=== PATIENT | male | born 1970 | race Caucasian/White ===

== ENCOUNTER → 2024-06-30 | Outpatient (CLI) | payer MEDICAID, SELFPAY ==
--- NOTE | 2024-06-30 16:30 | XR_ITS ---
Examination: CT chest, without intravenous contrast. Sagittal and coronal 2-D reconstructions. Exam date and time: June 30, 2024 at 1634 hours INDICATIONS: Diagnosis pulmonary mass one year ago CTDI:vol (mGy) 12 DLP: (mGycm) 426 Technique: Multiple 3.0 mm axial sections of the chest to been obtained. Bone and lung density settings are obtained. Sagittal and coronal 2-D reconstructions have been obtained. Low dose protocols were performed. One or more of the following dose reduction techniques were used; automated exposure control, adjustment of the mA and/or KV according to patient size, use of iterative reconstruction technique. Findings: Mild enlargement cardiac contour was small pericardial effusion No mediastinal lymphadenopathy Pulmonary mass pleural based in the right lower lobe containing central calcification, 27 mm Minor right hilar calcifications No lobar pneumonia or pulmonary edema No visualized liver or splenic lesion Large solid right renal upper pole tumor mass containing calcification, at least 7.7 cm IMPRESSION: Pleural-based pulmonary mass right lower lobe containing central calcification, 27 mm, likely granuloma but clinical correlation and follow-up recommended as clinically warranted Large solid right renal upper pole tumor mass at least 7.7 cm, recommend CT scan abdomen and pelvis post intravenous contrast follow-up
== END | disposition home or self-care (01) ==
LOC: CCTX 16:11
PROVIDERS: Referring Provider Internal Medicine; Visit Provider Internal Medicine
DX: R91.8 Other nonspecific abnormal finding of lung field (principal)
CPT/HCPCS: 71250

== ENCOUNTER 2024-08-04 12:56 | Inpatient (IN) | payer MEDICAID, SELFPAY ==
[2024-08-04] VITALS (10 sets, daily range): BP systolic 122–171; BP diastolic 85–121; PULSE 85–97; RESP 17–26; TEMP 36.5–36.7; O2SAT 88–94
--- NOTE | 2024-08-04 13:14 | XR_ITS ---
Examination: PA lateral chest 2 views TECHNIQUE: Upright PA lateral chest 2 views Exam date and time: August 04, 2024 1329 hours INDICATIONS: Shortness of breath today. FINDINGS: Mild CHF Moderate enlargement cardiac contour with prominent vascular congestion and bilateral septal pulmonary edema Pulmonary mass in the right upper lobe, 29 mm, which contains calcium, likely granuloma IMPRESSION: Mild CHF
--- NOTE | 2024-08-04 13:14 | EKG_ITS ---
[facility] Test Date: 2024-08-04 Pat Name: MARIBELL PORTILLO Department: Room: - Gender: Male Cardiology Associate: : 1970 Requested By: Brooks Mcgee (PEPPER) Order Number: [id number] Reading MD: Brooks Mcgee (STRUCTURAL DRAFTER) Measurements Intervals [place] Rate: 95 P: -80 VT: 202 QRS: 109 QRSD: 110 T: 22 QT: 365 QTc: 460 Interpretive Statements ECTOPIC ATRIAL RHYTHM RIGHT AXIS DEVIATION [QRS AXIS > 100] LOW QRS VOLTAGE IN PRECORDIAL LEADS [QRS DEFLECTION < 1.0 mV IN CHEST LEADS] INCOMPLETE RIGHT BUNDLE BRANCH BLOCK [90+ ms QRS DURATION, TERMINAL R IN V1/V2, 40+ ms S IN I/aVL/V4/V5/V6] MODERATE ST DEPRESSION [0.05+ mV ST DEPRESSION] No previous ECG available for comparison /[id number]/[email or web address]/[id number].pdf
--- NOTE | 2024-08-04 13:14 | PD.EDRME ---
Rapid Medical Screening Exam RME Arrival date/time: 08/04/24 12:56 54-year-old male presents to the Emergency Department today for complaints of shortness of breath patient reports recently diagnosed with lung mass as well as abdominal mass Chief Complaint: Abdominal Pain Vital signs: Vital Signs Temperature 97.8 F 08/04/24 13:07 Pulse Rate 96 08/04/24 13:07 Respiratory Rate 20 08/04/24 13:07 Blood Pressure 143/98 H 08/04/24 13:07 Pulse Oximetry (%) 88 L 08/04/24 13:07 Oxygen Delivery Method Room Air 08/04/24 13:07
[2024-08-04 13:45] LABS: Basophils # (Auto) 0.1 Thou/mm3 (0.0-0.2); Basophils % (Auto) 1 % (0-2.5); Eosinophils # (Auto) 0.1 Thou/mm3 (0.0-0.5); Eosinophils % (Auto) 1 % (0-10); Hematocrit 45.2 % (41.0-53.0); Hemoglobin 15.6 g/dL (13.5-16.0); Immature Granulocytes % (Auto) 0 % (0-0); Immature Granulocytes Auto 0.02 Thou/mm3 (0.00-0.00); Lymphocytes % (Auto) 15 % (10-50); Mean Corpuscular HGB Conc 34.5 g/dl (31.0-37.0); Mean Corpuscular Hemoglobin 31.6 pg (25.0-35.0); Mean Corpuscular Volume 92 fL (80-100); Monocytes # (Auto) 0.9 Thou/mm3 (0.0-0.8); Monocytes % (Auto) 13 % (0-12); Neutrophils # (Auto) 4.8 Thou/mm3 (1.8-7.7); Neutrophils % (Auto) 71 % (37-80); Nucleated Red Blood Cell % 0 /100 WBC (0); Platelet Count 157 Thou/mm3 (140-440); RDW Standard Deviation 50.1 fL (35.1-43.9); Red Blood Count 4.93 Miln/mm3 (4.50-5.90); White Blood Count 6.8 Thou/mm3 (3.8-10.6)
[2024-08-04 14:15] LABS: B-Type Natriuretic Peptide 260 pg/mL (0-100)
[2024-08-04 14:16] LABS: Alanine Aminotransferase 25 U/L (10-49); Albumin, Serum 4.3 gm/dL (3.5-5.0); Albumin/Globulin Ratio 1.5 (1.2-2.2); Alkaline Phosphatase 347 U/L (46-116); Anion Gap 9 (7-16); Aspartate Amino Transferase 35 U/L (0-34); BUN/Creatinine Ratio 12 Ratio (12-20); Bilirubin,Total 2.6 mg/dL (0.3-1.2); Blood Urea Nitrogen 14 mg/dL (9-23); Calcium 9.6 mg/dL (8.3-10.6); Calcium (Corrected) 9.6 mg/dL (8.5-10.1); Carbon Dioxide 24.2 mMol/L (20.0-31.0); Chloride 109 mMol/L (98-107); Creatinine (Component) 1.2 mg/dL (0.6-1.3); Globulin 2.8 gm/dL (2.3-3.5); Glucose 117 mg/dL (74-106); LDH (Lactate Dehydrogenase) 273 U/L (120-246); Lipase 31 U/L (12-53); Magnesium 1.9 mg/dL (1.6-2.6); Osmolality,Calculated 284 (275-295); Potassium 3.6 mMol/L (3.4-5.1); Sodium 142 mMol/L (136-145); Total Protein 7.1 gm/dL (5.7-8.2); Troponin I < 0.020 ng/mL (0.0-0.045); eGFR > 60 See Note
[2024-08-04 14:20] LABS: INR 1.2 (0.9-1.3); Partial Thromboplastin Time 28.2 Seconds (22.0-36.0)
--- NOTE | 2024-08-04 14:35 | XR_ITS ---
Examination: Abdomen sonogram, Limited Date and time of exam: August 04, 2024 1554 hours INDICATIONS: Cirrhosis, increasing distention this week Technique: Real-time green scale transabdominal sonographic images of the upper abdomen obtained. Findings: Minimal ascitic fluid IMPRESSION: Minimal ascitic fluid
--- NOTE | 2024-08-04 14:45 | PD.EDADULT ---
ED General RME/HPI General Chief complaint: Abdominal Pain Stated complaint: NEED BELLY DRAINED ; [facility] SENT Time Seen by Provider: 08/04/24 14:19 Arrival date/time: 08/04/24 12:56 CC: Shortness of breath, swollen ankles, distended abdomen, swollen scrotum HPI ongoing for the last 2 to 3 weeks however the patient is noted the shortness of breath started approximately 4 to 5 months ago now patient states he cannot walk 10 yards without becoming short of breath. The patient admits to smoking 3 to 4 cigarettes a day . Patient denies fever chills. Patient states he has had intermittent chest pressure in the past months but none right now. Patient is awake alert oriented oxygen saturations on room air were 86% currently the patient is on 4 L nasal cannula satting 92% he is mildly tachypneic with borderline tachycardia. Recent discovery by PCP of a mass in his lung , and a mass on his kidney . RME / HPI RME / HPI narrative: 08/04/24 12:56 54-year-old male presents to the Emergency Department today for complaints of shortness of breath patient reports recently diagnosed with lung mass as well as abdominal mass Related Data Allergies Allergy/AdvReac Type Severity Reaction Status Date / Time No Known Allergies Allergy Verified 08/04/24 12:58 Review of Systems Review of Systems Narrative Review of Systems: GEN: No fever, no chills, no weight loss EYES: No discharge, no visual changes, no pain HEENT: No ear pain, no congestion, no sore throat PULM: + shortness of breath, no cough, no congestion CV: No chest pain, no dyspnea on exertion, no palpitations GI: No nausea, no vomiting, no diarrhea, no pain, no constipation : No frequency, no urgency, no dysuria MUSC/SKEL: No joint pain, no back pain SKIN: No rash PSYCH: No hallucinations, no depression HEME/LYMPH: No easy bleeding or bruising tendencies NEURO: No weakness, no headache Past Medical History Social History SMOKING STATUS: Light (< 1 pack/day) ED Exam Narrative Physical exam: [General: In mild discomfort but not in any acute distress Head normocephalic HEENT: Eyes pupils are PERRLA EOMs are intact mouth pink dry membranes uvula is midline swallow is symmetrical. All the subsystems of ATTR within acceptable limits Neck is supple nontender Chest equal chest rise nontender to palpation Respiratory: Clear to auscultation no wheezes crackles or rubs CV: Rate rhythm is regular no murmurs rubs or clicks Abdomen is distended, tympanic, nontender, distant positive bowel sounds all 4 quadrants Back: No CVA tenderness no spinous process tenderness from cervical spine thoracic and lumbar spine Skin: No rash to the left inguinal crease otherwise skin is intact no petechiae rash induration ulceration or crepitus, nicotine stain to the right index finger. : Edematous foreskin, edematous scrotum, nonerythematous not warm to touch, no open lesions induration or ulceration. Extremities: Moving all extremity against resistance cap refill less than 2 seconds neurosensory intact. Nonpitting edema in both lower extremities including dorsum of the feet. Neuro: Awake alert oriented x3 Glascow coma 15 no focal deficits] Course Course Course Narrative: Patient is in fluid overload, will diurese him, however it is significant enough to require oxygen. After paracentesis if possible patient will be admitted for congestive heart failure and hypoxemia at which time the patient get further workup on the masses in the lung and abdomen. Review of all of patient's laboratory findings as the patient, remains hypoxemic there is not enough fluid removal of the abdomen at this time I think this is contributing to congestive heart failure. The masses are incidental findings, there is a concern over transaminitis and T. bili elevation ordered the ultrasound of the gallbladder the patient is reportedly not a drinker at this time. Patient's case discussed with Dr. Amparo Iverson who agrees to accept the patient for admission Quality Measures none Orders Category Date Time Status EKG (ED ONLY) *Do not use* NOW Care 08/04/24 13:14 Completed Saline [Insert IV] NOW Care 08/04/24 14:30 Active EKG (ED Only) Stat Exams 08/04/24 13:14 Draft US abdomen limited Stat Exams 08/04/24 14:35 Completed US gall bladder Stat Exams 08/04/24 16:03 Ordered XR chest 2V Stat Exams 08/04/24 13:14 Completed B-Type Natriuretic Peptide Stat Lab 08/04/24 13:38 Completed CBC Stat Lab 08/04/24 13:38 Completed Comprehensive Metabolic Panel Stat Lab 08/04/24 13:38 Completed Drug Screen,Urine Stat Lab 08/04/24 16:00 Received LDH (Lactate Dehydrogenase) Stat Lab 08/04/24 13:38 Completed Lipase Stat Lab 08/04/24 13:38 Completed Magnesium Stat Lab 08/04/24 13:38 Completed Partial Thromboplastin Time Stat Lab 08/04/24 13:38 Completed Prothrombin Time with INR Stat Lab 08/04/24 13:38 Completed Troponin I Stat Lab 08/04/24 13:38 Completed Urinalysis Stat Lab 08/04/24 16:00 Received Furosemide Inj [Lasix Inj] Med 08/04/24 14:30 Discontinued 80 mg IVP X1 ONE POTASSIUM CHL 10 mEq IVPB [Kcl Ivpb] Med 08/04/24 14:32 Active 10 meq in 100 ml IV Q1H Vital Signs Vital signs: Vital Signs Temperature 97.8 F 08/04/24 13:07 Pulse Rate 96 08/04/24 13:07 Respiratory Rate 20 08/04/24 13:07 Blood Pressure 143/98 H 08/04/24 13:07 Pulse Oximetry (%) 88 L 08/04/24 13:07 Oxygen Delivery Method Room Air 08/04/24 13:07 Discharge Plan Plan Patient Disposition: Xfer Residential Acute Patient condition on transfer: Stable Prescriptions/Referrals Referrals: [facility] PA-C [Primary Care Provider] - In 1 week Problem List Clinical Impression: Shortness of breath, Congestive heart failure Patient/Caregiver Discharge Instructions Print Language: Vietnamese Stand Alone Forms: Lian Award Info., Patient Portal Info Letter PA/GONZALO Supervising Physician PA/SEWER LINE REPAIRER Supervising Physician: Abraham Brown ENP MDM Patient Acuity High Acuity (complete MDM) Clinical Information Provided by: patient Medical Records reviewed [facility] Meds/Rx considered, not ordered None Labs/Rad/Tests considered, not ordered None Chronic Illness/Social Conditions Explain: Smoker, hypertension EKG EKG Interpretation(s): EKG performed at 1317 shows a ventricular rate of 95 IN interval 202 QRS of 110, QTc of 418. Right axis deviation. Incomplete right bundle branch block no old EKG for comparison. Labs Lab(s) Interpretation(s): CBC shows no acute leukocytosis anemia thrombocytopenia Coags show PT of 13.0 INR 1.2 PTT of 28.2 CMP shows chloride of 109 no other electrolyte imbalances glucose at 117. T. bili at 2.6 AST 35 ALT 25 alk phos of 347 LDH of 273 BNP of 260. Troponin within acceptable limits Lipase is 31 Imaging Imaging Interpretation(s): Chest x-ray as interpreted by radiology and reviewed by me shows mild congestive heart failure. Medication Administration(s) Medication Administration History Potassium Chloride (Kcl Ivpb) 10 meq in 100 mls @ 100 mls/hr IV Q1H LALY Stop: 08/04/24 18:31 Last Admin: 08/04/24 15:32 Dose: 100 mls/hr Documented By: DO Discontinued Medications Furosemide (Furosemide Inj 10 Mg/Ml 4ml Vial) 80 mg IVP X1 ONE Stop: 08/04/24 14:31 Last Admin: 08/04/24 15:27 Dose: 80 mg Documented By:
[2024-08-04] MEDS: FUROSEMIDE INJ 10 MG/ML 4ML VIAL 80 MG IVP (15:27)
[2024-08-04] MEDS: POTASSIUM CHL 10 mEq IVPB 10 MEQ/100 ML BAG 100 MEQ IV (15:32)
--- NOTE | 2024-08-04 16:03 | XR_ITS ---
Examination: Abdomen sonogram, Limited Date and time of exam: August 04, 2024 17.5 hours Indications: Elevated liver transaminases size and left are examination today, abdominal pain beginning 2 weeks Technique: Real-time green scale transabdominal sonographic images of the upper abdomen obtained. Findings: Negative for gallstones Gallbladder wall is thickened up to 0.66 cm no edema Common bile duct 0.3 cm Pancreatic head 2.3 cm Liver 16.9 cm minimal free fluid in the abdomen, lobular appearance of the liver Normal hepatopedal portal venous oh Patent IVC Apparent right renal mass 6.9 x 5.8 x 6.3 cm Impression: Cirrhosis versus primary hepatocellular disease Mild ascites Gallbladder wall thickening up to 0.6 6:00 PM which may relate to be free fluid in the abdomen Recommend CT scan abdomen pelvis post intravenous contrast follow-up to exclude solid right renal mass
[2024-08-04 16:11] LABS: Collection Type, Urine Clean Catch; Squamous Epithelial Cell,Urine 0 /hpf (0-5)
[2024-08-04 16:17] LABS: Bilirubin,Urine Negative (Negative); Blood,Urine Negative (Negative); Clarity,Urine Clear (Clear/Hazy); Color,Urine Lt-Yellow (Lt Yel-Yel); Glucose, Urine Negative (Negative); Ketones,Urine Negative (Negative); Leukocyte Esterase,Urine Negative (Negative); Nitrite,Urine Negative (Negative); PH,Urine 6.5 (5.0-7.0); Protein,Urine Negative (Neg - Trace); RBC,Urine 3 /hpf (0-3); Specific Gravity,Urine 1.012 (1.001-1.035); WBC,Urine 2 /hpf (0-5)
[2024-08-04 16:25] LABS: Amphetamine/Methamp Scrn,U Positive (Negative); Barbiturate Screen,Urine Negative (Negative); Benzodiazepines Screen,Urine Negative (Negative); Benzoylecgonine Screen, Ur Negative (Negative); Fentanyl Screen,Urine Negative (Negative); Opiate Screen,Urine Negative (Negative); THC Screen,Urine Positive (Negative)
[2024-08-04 16:40] LABS: Base Excess -1 (-3-3); HCO3 21 mEq/L (20-26); Inspired O2, VO2 Liters 6 L/min; Inspired Oxygen, FIO2 94 %; O2 Saturation 92 % (91-98); PCO2 29 mmHg (32.0-48.0); PO2 61 mmHg (83-108); pH, Arterial 7.48 (7.35-7.45)
[2024-08-04 16:48] LABS: Allen Test Not Performed; Puncture Site Right Radial
--- NOTE | 2024-08-04 16:51 | XR_ITS ---
Examination: Venous duplex lower extremity sonogram, bilateral. Date and time of exam: August 04, 2024 1704 hours Indications: Bilateral leg swelling beginning 2 weeks ago Technique: Multiple sonographic images of the deep venous system have been obtained. B-mode/2-D grayscale imaging of vascular structures and Doppler spectral analysis (waveforms) and color performed Both legs are examined. Findings: Deep venous systems do not demonstrate abnormal echogenicity. All visualized deep veins exhibit compressibility. All visualized deep veins exhibit augmentation. Impression: Negative for deep vein thrombosis
--- NOTE | 2024-08-04 17:00 | ESHP_ITS ---
<Statement entered by Bharat Tiwari MD - 08/10/24 13:38> I reviewed above note and agree with findings and plans. I have also personally examined the patient with medicine team and went over assessment and plan with medical team including medical intern and resident physician. <Statement entered by Shahid Manuel MD - 08/07/24 15:05> Senior Resident Attestation: I supervised/discussed management plan with medical intern physician Dr. Altman, and was involved in the care of this patient. I personally saw and examined the patient and discussed the assessment and plan with the entire medicine team, including my attending. I agree with the assessment and plan as documented. Patient is a 54 years old male with PMH of CHF, hypertension, tobacco use disorder, methamphetamine abuse, recently diagnosed with right lung mass presented to the ED due to worsening SOB and was admitted for CHF exacerbation management and was started on IV diuretics. Patient's care was discussed with attending physician, Dr. Tiwari. Shahid Manuel MD PGY-2. Documentation for date of: 08/04/24 HPI History of Present Illness Chief complaint: Shortness of breath History of present illness: A 54-year-old male with significant past medical history of congestive heart failure, hypertension, chronic smoker, methamphetamine abuse, recently diagnosed with right lung mass presented to the hospital with worsening shortness of breath since 2 weeks. Patient was apparently normal 2 weeks ago, then developed shortness of breath which is gradual in onset, progressive in nature. Stated that he is having cough from a long time and was sent from the last 2 weeks. Denies fever, nausea, vomitings. Also complaining of mild abdominal distention associated with decreased appetite. Denies recent weight loss. As patient's shortness of breath is worsening, patient went to [facility] on the outpatient basis following which patient came to the hospital. Patient is having lower extremity edema since many months from now and is using Lasix for that ED course: - Vitals at the time of admission are significant for blood pressure 143/98 mmHg, SpO2 88% with room air - Labs are significant for total bilirubin 2.6, AST 35, ALT 25, ALP 347, LDH 273, BNP 260 - Urine toxicology tested positive for methamphetamine, marijuana - Chest x-ray showed 2.9 cm mass in the right lung which is calcified - Abdominal ultrasound showed minimal ascitic fluid -Patient is admitted to the hospital for acute hypoxic respiratory failure secondary to CHF exacerbation Past medical history: Hypertension, congestive heart failure Past surgical history: Not significant Social history: Smokes 40 cigarettes/day currently and smoking since 40 years. Stopped alcohol 15 years ago. Admitted marijuana and methamphetamine abuse. Denies any other drugs. Lives at home with his family Allergies: NKDA Review of Systems Review of Systems Systems Reviewed: All systems reviewed, normal except as documented Past Medical History Social History SMOKING STATUS: Light (< 1 pack/day) Exam Vital Signs Temp Pulse Resp BP Pulse Ox O2 Del Method O2 Flow Rate 97.9 F 97 20 133/98 H 94 L Nasal Cannula 6 08/04/24 14:23 08/04/24 16:52 08/04/24 16:52 08/04/24 15:27 08/04/24 16:52 08/04/24 14:08/04/24 16:52 Narrative Exam General: Awake. On oxygen through nasal cannula HEENT: Normocephalic, atraumatic, mucous membranes moist. Heart: Regular rate and rhythm, no murmurs. Lungs: Clear to auscultation with no wheezing or crackles. Abdomen: Soft, nondistended, nontender, positive bowel sounds. ?No guarding or rebound tenderness. Neurologic: Alert and oriented x3, no gross neurological deficit, and patient able to move all 4 extremities. Extremities: Bilateral 4+ pitting pedal edema extending up to lower abdomen. Noticed scrotal edema. Bilateral erythema is noted in the lower extremities Skin: No rash or ecchymoses. Results: Labs 08/04/24 13:38 08/04/24 13:38 Labs: Short CBC 08/04/24 Range/Units 13:38 WBC 6.8 (3.8-10.6) Thou/mm3 Hgb 15.6 (13.5-16.0) g/dL Hct 45.2 (41.0-53.0) % Plt Count 157 (140-440) Thou/mm3 BMP 08/04/24 13:38 Sodium 142 Potassium 3.6 Chloride 109 H Carbon Dioxide 24.2 BUN 14 Creatinine 1.2 Glucose 117 H Calcium 9.6 Cardiac Enzymes 08/04/24 Range/Units 13:38 Troponin I < 0.020 (0.0-0.045) ng/mL Liver Function 08/04/24 Range/Units 13:38 Total Bilirubin 2.6 H (0.3-1.2) mg/dL AST 35 H (0-34) U/L ALT 25 (10-49) U/L Alkaline Phosphatase 347 H (46-116) U/L Albumin 4.3 (3.5-5.0) gm/dL Urine 08/04/24 Range/Units 16:00 Urine Color Lt-Yellow (Lt Yel-Yel) Urine Clarity Clear (Clear/Hazy) Urine pH 6.5 (5.0-7.0) Ur Specific [place] 1.012 (1.001-1.035) Urine Protein Negative (Neg - Trace) Urine Glucose (UA) Negative (Negative) ABG Interpretation ABG results: 08/04/24 16:37 ABG pH 7.48 H ABG pCO2 29 L ABG pO2 61 L ABG HCO3 21 ABG O2 Saturation 92 ABG Base Excess -1 Quality Measures Quality Measures none Medications Home Medications and Allergies Allergies Allergy/AdvReac Type Severity Reaction Status Date / Time No Known Allergies Allergy Verified 08/04/24 12:58 Visit Medications Acetaminophen (Acetaminophen 325 Mg Tablet) 650 mg PO Q6H PRN PRN Reason: Fever >100.3 Stop: 09/03/24 16:27 Albuterol/Ipratropium (Albuterol/Ipratropium (Duoneb) Rt Gertrude 3 Ml Nebu) 3 ml INH Q6HRRT LALY Stop: 09/03/24 18:59 Bumetanide (Bumetanide Inj 0.25 Mg/Ml Vial 4 Ml) 1 mg IVP BID LALY Stop: 09/03/24 20:59 Carvedilol (Carvedilol 3.125 Mg Tablet) 6.25 mg PO BIDWM LALY Stop: 09/03/24 17:29 Docusate Sodium (Docusate Sod 100 Mg Capsule) 100 mg PO QDAY PRN; Protocol PRN Reason: CONSTIPATION Stop: 09/03/24 16:27 Enoxaparin Sodium (Enoxaparin Sod Inj 40 Mg/0.4 Ml Syringe) 40 mg SC QDAY LALY Stop: 08/19/24 08:59 Potassium Chloride (Kcl Ivpb) 10 meq in 100 mls @ 100 mls/hr IV Q1H LALY Stop: 08/04/24 18:31 Last Admin: 08/04/24 15:32 Dose: 100 mls/hr Ondansetron HCl (Ondansetron Inj 2 Mg/Ml Inj 2 Ml) 4 mg IV Q6H PRN; Protocol PRN Reason: NAUSEA OR VOMITING Stop: 09/03/24 16:27 Tramadol HCl (Tramadol Hcl 50 Mg Tablet) 50 mg PO Q6HR PRN PRN Reason: PAIN SCALE 4-10(Mod-Sev Stop: 08/09/24 16:27 Discontinued Medications Acetaminophen (Acetaminophen 325 Mg Tablet) 650 mg PO Q6H PRN PRN Reason: Fever >101.5 Stop: 09/03/24 16:27 Furosemide (Furosemide Inj 10 Mg/Ml 4ml Vial) 80 mg IVP X1 ONE Stop: 08/04/24 14:31 Last Admin: 08/04/24 15:27 Dose: 80 mg Assessment & Plan Plan A 54-year-old male with significant past medical history of congestive heart failure, hypertension, chronic smoker, methamphetamine abuse, recently diagnosed with right lung mass presented to the hospital with worsening shortness of breath since 2 weeks and admitted in the hospital for acute hypoxic respiratory failure secondary to heart failure exacerbation, likely systolic failure in the setting of methamphetamine abuse # Acute hypoxic respiratory failure # Secondary to CHF exacerbation # Risk factors-methamphetamine, chronic smoker - Patient had history of chronic smoking since 40 years and is using methamphetamine - Presented to the hospital with chief complaints of shortness of breath which is worsening over the last 2 weeks and lower extremity swelling which was present since many months from now - Patient is using Lasix, despite that patient is having shortness of breath which is worsening for which he went to outpatient clinic in the [facility] - Patient was referred to hospital in view of worsening shortness of breath - Vitals at the time of admission are significant for blood pressure 143/98 mmHg, SpO2 88% with room air- On physical exam, noted bilateral 4+ pitting pedal edema extending up to lower abdomen with scrotal edema. Diffuse erythema noted in bilateral lower extremity with induration suggestive of chronic venous hypertension - Labs are significant for elevated bilirubin 2.6, AST 35, ALP 347, LDH 273, BNP 260 - Urine toxicology is positive for methamphetamine and marijuana - Chest x-ray showed 2.9 cm mass in the right lung which is calcified - Abdominal ultrasound showed minimal ascites fluid - 80mg of lasix is given in the ED Plan - Started on Bumex 1 Mg IV twice daily - Started on salt restriction to 2 g and fluid restriction to 1500 mL - Will continue his home carvedilol 6.25 Mg twice daily - Oxygen as needed - DuoNebs every 8 hourly - Condom catheter is ordered and will do strict input and output - cocci serology ordered # History of hypertension - Blood pressure at the time of admission is 143/98 mmHg - Patient is using lisinopril 10 Mg at home Plan - Patient was started on Bumex 1 Mg IV twice daily- -Patient was started on carvedilol 6.25 Mg twice daily - Placed on salt restriction and fluid restriction - Will continue to monitor blood pressures and titrate medications as needed #Hyperbilirubinemia - Total bilirubin at the time of admission is 2.6 - AST is mildly elevated to 35, ALT is within normal limits - ALP is 347, LDH is 273 Plan Gallbladder ultrasound is ordered, will follow-up with the results #Right lung mass - Patient reported that he was diagnosed with lung mass 2 weeks before the hospital admission - Chest x-ray showed 2.9 cm in the right lung Plan - Once the patient gets hemodynamically stable, will plan to do biopsy Hospital Maintenance: Dispo: Tele DVT ppx: Lovenox GI ppx: Lovenox Diet: salt restriction and fluid restriction to 1500ml IV lines: Peripheral Code status: Full Patient plan of care was discussed with the attending physician, Dr. Tiwari and senior resident Dr. Mar Altman, PGY1
[2024-08-04] MEDS: POTASSIUM CHL 10 mEq IVPB 10 MEQ/100 ML BAG 80 MEQ IV ×3 (17:08→20:22)
[2024-08-04] MEDS: carVEDILOL 3.125 MG TABLET 6.25 MG PO (17:08)
[2024-08-04] MEDS: BUMETANIDE INJ 0.25 MG/ML VIAL 4 ML 1 MG IVP (20:23)
[2024-08-05] VITALS (16 sets, daily range): BP systolic 118–141; BP diastolic 87–102; PULSE 62–95; RESP 12–92; TEMP 36.1–36.9; O2SAT 91–95; BMI 31.3
[2024-08-05] MEDS: ALBUTEROL/IPRATROPIUM (Duoneb) RT SOL 3 ML NEBU INH ×4 (00:54→18:17)
[2024-08-05 06:30] LABS: Basophils # (Auto) 0.1 Thou/mm3 (0.0-0.2); Basophils % (Auto) 1 % (0-2.5); Eosinophils # (Auto) 0.1 Thou/mm3 (0.0-0.5); Eosinophils % (Auto) 1 % (0-10); Hematocrit 43.6 % (41.0-53.0); Hemoglobin 14.7 g/dL (13.5-16.0); Immature Granulocytes % (Auto) 0 % (0-0); Immature Granulocytes Auto 0.02 Thou/mm3 (0.00-0.00); Lymphocytes # (Auto) 1.1 Thou/mm3 (1.0-4.8); Lymphocytes % (Auto) 16 % (10-50); Mean Corpuscular HGB Conc 33.7 g/dl (31.0-37.0); Mean Corpuscular Hemoglobin 31.8 pg (25.0-35.0); Mean Corpuscular Volume 94 fL (80-100); Monocytes # (Auto) 0.9 Thou/mm3 (0.0-0.8); Monocytes % (Auto) 13 % (0-12); Neutrophils # (Auto) 4.8 Thou/mm3 (1.8-7.7); Neutrophils % (Auto) 69 % (37-80); Nucleated Red Blood Cell % 0 /100 WBC (0); Platelet Count 148 Thou/mm3 (140-440); RDW Standard Deviation 51.6 fL (35.1-43.9); Red Blood Count 4.62 Miln/mm3 (4.50-5.90)
[2024-08-05 06:53] LABS: Glucose Estimated Average 134 mg/dL (80-131); Hemoglobin A1C 6.3 % Hgb (4.8-6.0)
[2024-08-05 07:06] LABS: Alanine Aminotransferase 22 U/L (10-49); Albumin, Serum 4.2 gm/dL (3.5-5.0); Albumin/Globulin Ratio 1.8 (1.2-2.2); Alkaline Phosphatase 333 U/L (46-116); Anion Gap 9 (7-16); Aspartate Amino Transferase 31 U/L (0-34); BUN/Creatinine Ratio 15 Ratio (12-20); Bilirubin,Total 2.5 mg/dL (0.3-1.2); Blood Urea Nitrogen 15 mg/dL (9-23); Calcium 9.4 mg/dL (8.3-10.6); Calcium (Corrected) 9.4 mg/dL (8.5-10.1); Carbon Dioxide 22.4 mMol/L (20.0-31.0); Cardiac Risk Estimate 2.4 RATIO (4.0-6.7); Chloride 110 mMol/L (98-107); Cholesterol 128 mg/dL (132-200); Estimated Creatinine Clearance 94.4 mL/min (>60); Globulin 2.4 gm/dL (2.3-3.5); Glucose 105 mg/dL (74-106); HDL Cholesterol 54 mg/dL (40-60); LDL Cholesterol,Calculated 63 mg/dL (0-130); Magnesium 1.8 mg/dL (1.6-2.6); Osmolality,Calculated 282 (275-295); Phosphorous 3.7 mg/dL (2.4-5.1); Potassium 3.6 mMol/L (3.4-5.1); Sodium 141 mMol/L (136-145); Thyroid Stimulating Hormone 0.71 uIU/mL (0.55-4.78); Total Protein 6.6 gm/dL (5.7-8.2); Triglycerides 57 mg/dL (30-150); eGFR > 60 See Note
[2024-08-05] MEDS: ENOXAPARIN SOD INJ 40 MG/0.4 ML SYRINGE SC (08:07)
[2024-08-05] MEDS: carVEDILOL 3.125 MG TABLET 6.25 MG PO ×2 (08:07→17:44)
[2024-08-05] MEDS: BUMETANIDE INJ 0.25 MG/ML VIAL 4 ML 1 MG IVP ×2 (08:08→20:16)
--- NOTE | 2024-08-05 09:06 | PC.SS ---
Mahin Aguilar? is a year-old male admitted for Acute Hypoxic Respiratory Failure. SS made contact with patient at bedside and patient to complete initial and discuss discharge disposition. Role and reason for the contact was explained to patient. Demographic information was verified. Pt reports he lives at home with his father, Nguyen Aguilar who he reports is surrogate decision maker [phone]. He is independent with all ADLs. Patient does not utilize any source of DME, or home O2. Pt's choice of pharmacy is [facility]PCP is [facility]. At time of discharge patient will return home, patient's father will provide transportation. Discharge Plan: Home Next of Kin; Father Nguyen Aguilar
[2024-08-05 12:58] LABS: Cocci Serology, IgM Negative (Negative)
--- NOTE | 2024-08-05 15:21 | ESPR_ITS ---
<Statement entered by Bharat Tiwrai MD - 08/10/24 13:40> I reviewed above note and agree with findings and plans. I have also personally examined the patient with medicine team and went over assessment and plan with medical team including nutrition intern and resident physician. <Statement entered by Shahid Manuel MD - 08/07/24 15:06> Senior Resident Attestation: I supervised/discussed management plan with nutrition intern physician Dr. Altman, and was involved in the care of this patient. I personally saw and examined the patient and discussed the assessment and plan with the entire medicine team, including my attending. I agree with the assessment and plan as documented. Patient's condition is improving, oxygen demand has dicreased. He continues on IV Bumex. Echo is pending. Patient's care was discussed with attending physician, Dr. Tiwari. Shahid Manuel MD PGY-2. Documentation for date of: 08/05/24 Subjective Subjective Interval history: Patient is seen and examined at bedside Reported that he is feeling better and his shortness of breath improved. No acute overnight events. Vitals are stable. On physical examination, bilateral iron to present without any wheezing or crackles Labs showed HbA1c 6.3, total bilirubin 2.5 Echo is done, read pending Plan to discharge tomorrow if patient continues to do well Exam Vital Signs Temp Pulse Resp BP Pulse Ox O2 Del Method O2 Flow Rate 97.0 F 87 17 135/101 H 92 L Nasal Cannula 6 08/05/24 12:00 08/05/24 12:33 08/05/24 12:33 08/05/24 12:00 08/05/24 12:33 08/05/24 12:00 08/05/24 12:33 Narrative Exam General: Awake. On oxygen through nasal cannula HEENT: Normocephalic, atraumatic, mucous membranes moist. Heart: Regular rate and rhythm, no murmurs. Lungs: Clear to auscultation with no wheezing or crackles. Abdomen: Soft, nondistended, nontender, positive bowel sounds. ?No guarding or rebound tenderness. Neurologic: Alert and oriented x3, no gross neurological deficit, and patient able to move all 4 extremities. Extremities: Bilateral 4+ pitting pedal edema extending up to lower abdomen. Noticed scrotal edema. Bilateral erythema is noted in the lower extremities Skin: No rash or ecchymoses. Objective Labs 08/05/24 05:35 08/05/24 05:35 Labs: Laboratory Results - last 24 hr 08/04/24 08/04/24 08/04/24 16:00 16:37 17:27 WBC RBC Hgb Hct MCV MCH MCHC RDW Std Deviation Plt Count Neut % (Auto) Lymph % (Auto) [place] % (Auto) Eos % (Auto) Baso % (Auto) Neut # (Auto) Lymph # (Auto) [place] # (Auto) Eos # (Auto) Baso # (Auto) Immature Gran # (Auto) Absolute Nucleated RBC Immature Gran % Nucleated RBC % Puncture Site Right Radial ABG pH 7.48 H ABG pCO2 29 L ABG pO2 61 L ABG HCO3 21 ABG O2 Saturation 92 ABG Base Excess -1 Oxygen Liter Flow 6 FiO2 94 Sodium Potassium Chloride Carbon Dioxide Anion Gap BUN Creatinine Estim Creat Clear Calc eGFR BUN/Creatinine Ratio Glucose Estimated Ave Glu mg/dL Hemoglobin A1c Calculated Osmolality Calcium Corrected Calcium Phosphorus Magnesium Total Bilirubin AST ALT Alkaline Phosphatase Total Protein Albumin Globulin Albumin/Globulin Ratio Triglycerides Cholesterol LDL Cholesterol, Calc HDL Cholesterol Cholesterol/HDL Ratio TSH Ur Collection Type Clean Catch Urine Color Lt-Yellow Urine Clarity Clear Urine pH 6.5 Ur Specific [place] 1.012 Urine Protein Negative Urine Glucose (UA) Negative Urine Ketones Negative Urine Blood Negative Urine Nitrite Negative Urine Bilirubin Negative Urine Urobilinogen (Auto) 2.0 Ur Leukocyte Esterase Negative Urine RBC 3 Urine WBC 2 Ur Squamous Epith Cells 0 Urine Bacteria None Urine Opiates Screen Negative Urine Fentanyl Screen Negative Ur Barbiturates Screen Negative U Amphetamin/Meth Scrn Positive A U Benzodiazepines Scrn Negative U Cocaine Metab Screen Negative U Marijuana (THC) Screen Positive A Coccidioides IgM Ab Negative 08/05/24 05:35 WBC 7.0 RBC 4.62 Hgb 14.7 Hct 43.6 MCV 94 MCH 31.8 MCHC 33.7 RDW Std Deviation 51.6 H Plt Count 148 Neut % (Auto) 69 Lymph % (Auto) 16 [place] % (Auto) 13 H Eos % (Auto) 1 Baso % (Auto) 1 Neut # (Auto) 4.8 Lymph # (Auto) 1.1 [place] # (Auto) 0.9 H Eos # (Auto) 0.1 Baso # (Auto) 0.1 Immature Gran # (Auto) 0.02 H Absolute Nucleated RBC 0.00 Immature Gran % 0 Nucleated RBC % 0 Puncture Site ABG pH ABG pCO2 ABG pO2 ABG HCO3 ABG O2 Saturation ABG Base Excess Oxygen Liter Flow FiO2 Sodium 141 Potassium 3.6 Chloride 110 H Carbon Dioxide 22.4 Anion Gap 9 BUN 15 Creatinine 1.0 Estim Creat Clear Calc 94.4 eGFR > 60 BUN/Creatinine Ratio [address] Glu mg/dL 134 H Hemoglobin A1c 6.3 H Calculated Osmolality 282 Calcium 9.4 Corrected Calcium 9.4 Phosphorus 3.7 Magnesium 1.8 Total Bilirubin 2.5 H AST 31 ALT 22 Alkaline Phosphatase 333 H Total Protein 6.6 Albumin 4.2 Globulin 2.4 Albumin/Globulin Ratio 1.8 Triglycerides 57 Cholesterol 128 L LDL Cholesterol, Calc 63 HDL Cholesterol 54 Cholesterol/HDL Ratio 2.4 L TSH 0.71 Ur Collection Type Urine Color Urine Clarity Urine pH Ur Specific [place] Urine Protein Urine Glucose (UA) Urine Ketones Urine Blood Urine Nitrite Urine Bilirubin Urine Urobilinogen (Auto) Ur Leukocyte Esterase Urine RBC Urine WBC Ur Squamous Epith Cells Urine Bacteria Urine Opiates Screen Urine Fentanyl Screen Ur Barbiturates Screen U Amphetamin/Meth Scrn U Benzodiazepines Scrn U Cocaine Metab Screen U Marijuana (THC) Screen Coccidioides IgM Ab ABG Interpretation ABG results: 08/04/24 16:37 ABG pH 7.48 H ABG pCO2 29 L ABG pO2 61 L ABG HCO3 21 ABG O2 Saturation 92 ABG Base Excess -1 Quality Measures Quality Measures none Assessment & Plan Assessment Current Active Medications: Generic Name Dose Route Start Last Admin Trade Name Freq PRN Reason Stop Dose Admin Acetaminophen 650 mg 08/04/24 16:48 Acetaminophen 325 Mg Tablet PO 09/03/24 16:27 Q6H PRN Fever >100.3 Albuterol/Ipratropium 3 ml 08/04/24 19:00 08/05/24 12:32 Albuterol/Ipratropium (Duoneb) Rt Gertrude 3 Ml Nebu INH 09/03/24 18:59 3 ml Q6HRRT LALY Administration Bumetanide 1 mg 08/04/24 21:00 08/05/24 08:08 Bumetanide Inj 0.25 Mg/Ml Vial 4 Ml IVP 09/03/24 20:59 1 mg BID LALY Administration Carvedilol 6.25 mg 08/04/24 17:30 08/05/24 08:07 Carvedilol 3.125 Mg Tablet PO 09/03/24 17:29 6.25 mg BIDWM LALY Administration Docusate Sodium 100 mg 08/04/24 16:28 Docusate Sod 100 Mg Capsule PO 09/03/24 16:27 QDAY PRN CONSTIPATION Protocol Enoxaparin Sodium 40 mg 08/05/24 09:00 08/05/24 08:07 Enoxaparin Sod Inj 40 Mg/0.4 Ml Syringe SC 08/19/24 08:59 40 mg QDAY LALY Administration Ondansetron HCl 4 mg 08/04/24 16:28 Ondansetron Inj 2 Mg/Ml Inj 2 Ml IV 09/03/24 16:27 Q6H PRN NAUSEA OR VOMITING Protocol Tramadol HCl 50 mg 08/04/24 16:28 Tramadol Hcl 50 Mg Tablet PO 08/09/24 16:27 Q6HR PRN PAIN SCALE 4-10(Mod-Sev Plan A 54-year-old male with significant past medical history of congestive heart failure, hypertension, chronic smoker, methamphetamine abuse, recently diagnosed with right lung mass presented to the hospital with worsening shortness of breath since 2 weeks and admitted in the hospital for acute hypoxic respiratory failure secondary to heart failure exacerbation, likely systolic failure in the setting of methamphetamine abuse # Acute hypoxic respiratory failure # Secondary to CHF exacerbation # Risk factors-methamphetamine, chronic smoker - Patient had history of chronic smoking since 40 years and is using methamphetamine - Presented to the hospital with chief complaints of shortness of breath which is worsening over the last 2 weeks and lower extremity swelling which was present since many months from now - Patient is using Lasix, despite that patient is having shortness of breath which is worsening for which he went to outpatient clinic in the [facility] - Patient was referred to hospital in view of worsening shortness of breath - Vitals at the time of admission are significant for blood pressure 143/98 mmHg, SpO2 88% with room air - On physical exam, noted bilateral 4+ pitting pedal edema extending up to lower abdomen with scrotal edema. Diffuse erythema noted in bilateral lower extremity with induration suggestive of chronic venous hypertension - Labs are significant for elevated bilirubin 2.6, AST 35, ALP 347, LDH 273, BNP 260 - Urine toxicology is positive for methamphetamine and marijuana - Chest x-ray showed 2.9 cm mass in the right lung which is calcified - Abdominal ultrasound showed minimal ascites fluid - 80mg of lasix is given in the ED - cocci serology ordered and came negative Plan - Started on Bumex 1 Mg IV twice daily - Started on salt restriction to 2 g and fluid restriction to 1500 mL - Will continue his home carvedilol 6.25 Mg twice daily - Oxygen as needed - DuoNebs every 8 hourly - Condom catheter is ordered and will do strict input and output # History of hypertension - Blood pressure at the time of admission is 143/98 mmHg - Patient is using lisinopril 10 Mg at home Plan - Patient was started on Bumex 1 Mg IV twice daily - Patient was started on carvedilol 6.25 Mg twice daily - Placed on salt restriction and fluid restriction - Will continue to monitor blood pressures and titrate medications as needed # Newly diagnosed diabetes mellitus HbA1c on 08/05/2024 is 6.3 Plan - Will recommend patient to follow-up in outpatient basis with his primary care provider for further management #Hyperbilirubinemia likely from liver disease - Total bilirubin at the time of admission is 2.6 - AST is mildly elevated to 35, ALT is within normal limits - ALP is 347, LDH is 273 - Gallbladder ultrasound is ordered, did not show any stones Plan - Will continue to monitor CMP for now #Right lung mass #Right Renal mass - Patient reported that he was diagnosed with lung mass 2 weeks before the hospital admission - Chest x-ray showed 2.9 cm in the right lung and right renal mass on CT abdomen Plan - Once the patient gets hemodynamically stable, will plan to do biopsy on outpatient basis # Marijuana and methamphetamine abuse - Patient tested positive for methamphetamine and marijuana Plan - Referral to coordinator of genetic services done Hospital Maintenance: Dispo: Tele DVT ppx: Lovenox GI ppx: not needed Diet: salt restriction and fluid restriction to 1500ml IV lines: Peripheral Code status: Full Patient plan of care was discussed with the attending physician, Dr. Tiwari and senior resident Dr. Mar Altman, PGY1
--- NOTE | 2024-08-05 16:23 | XR_ITS ---
Examination: CTA chest with intravenous contrast 2-D reconstructions 3-D reconstructions, vascular Date and time of exam: August 06, 2024 at 0919 hours INDICATIONS: Onset chest pain short of breath this week, clinical diagnosis pulmonary artery hypertension, diagnosis renal carcinoma CTDI: vol (mGy) 10.6 DLP: (mGycm) 4 Technique: Multiple axial sections of the thorax have been obtained. 3 mm slice thickness, from below the hemidiaphragms to above the apices of the lungs. Mediastinal and lung density settings have been obtained. 2-D sagittal and coronal reconstructions. 3-D angiographic renderings, 3-D volume renderings, 3D post processing, vascular maximum intensity projections obtained. Contrast administered is 100 cc Isovue-370 intravenous. Low dose protocols were performed. One or more of the following dose reduction techniques were used; automated exposure control, adjustment of the mA and/or KV according to patient size, use of iterative reconstruction technique. Findings: AP dimension ascending thoracic aorta 34 mm Pulmonary artery segments are not significantly enlarged No pulmonary artery filling defects 27 mm pulmonary nodule with calcifications right lower lobe Prominent vascular congestion with small to moderate right and small left pleural effusions Liver irregular in contour with mild ascites Contracted gallbladder No pancreatic mass Diffuse thoracic degenerative disc disease IMPRESSION: Negative for pulmonary artery hypertension Negative for pulmonary artery emboli Mild heart failure
--- NOTE | 2024-08-05 16:34 | ECHO_ITS ---
Transthoracic Echo Report Ht (in): 69 Wt (lb): 212 Exam Location: [facility] Status: Inpatient Tax Compliance Manager: ROSA Real^^^^ Indications: Procedure Performed: BP: / HR: MEASUREMENTS (Male / Female) Normal Values 2D ECHO LV Diastolic Diameter PLAX 4.2 cm 4.2 - 5.9 / 3.9 - 5.3 cm LV Systolic Diameter PLAX 2.9 cm IVS Diastolic Thickness 0.8 cm 0.6 - 1.0 / 0.6 - 0.9 cm LVPW Diastolic Thickness 1.0 cm 0.6 - 1.0 / 0.6 - 0.9 cm LV Relative Wall Thickness 0.4 LVOT Diameter 1.7 cm Aortic Root Diameter 3.1 cm LA Systolic Diameter LX 3.2 cm 3.0 - 4.0 / 2.7 - 3.8 cm LA Volume Index 30.6 cm?/m? 16 - 28 cm?/m? Ascending Aorta Diameter 2.6 cm DOPPLER AV Peak Velocity 139.3 cm/s AV Peak Gradient 7.8 mmHg AV Mean Gradient 4.5 mmHg AV Velocity Time Integral 23.8 cm LVOT Peak Velocity 78.3 cm/s LVOT Peak Gradient 2.5 mmHg LVOT Velocity Time Integral 17.2 cm AV Area Cont Eq vti 1.6 cm? AV Area Cont Eq pk 1.3 cm? MV Area PHT 3.7 cm? MR Peak Velocity 273.0 cm/s MR Peak Gradient 29.8 mmHg Mitral E Point Velocity 53.9 cm/s Mitral A Point Velocity 71.1 cm/s Mitral E to A Ratio 0.8 LV E' Lateral Velocity 11.4 cm/s Mitral E to LV E' Lateral Ratio 4.7 LV E' Septal Velocity 6.3 cm/s Mitral E to LV E' Septal Ratio 8.5 TR Peak Velocity 340.3 cm/s TR Peak Gradient 46.3 mmHg PV Peak Velocity 74.6 cm/s PV Peak Gradient 2.2 mmHg RVOT Peak Velocity 42.1 cm/s FINDINGS Left Ventricle Normal left ventricular size, wall thickness, systolic function with evidence of septal dyskinesis paradoxical motion of the septum secondary to right ventricular pressure and volume overload wit normal left ventricular wall motion and function function ejection fraction of 60% Right Ventricle The right ventricle is dilated significantly with right ventricle pressure and volume overload PA pressure estimated at 68 mmHg Left Atrium The left atrium is normal by two-dimensional, color flow and Doppler imaging with no structural abnormalities, no thrombus formation present. Right Atrium The right atrial cavity size is severely increased. Atrial Septum The interatrial septum appears normal with no evidence of a shunt. Aorta The aorta is normal by two-dimensional, color flow and Doppler interrogation. Mitral Valve Trace to mild mitral regurgitation. Mild mitral annular calcification. Aortic Valve Aortic valve sclerosis. Tricuspid Valve There is moderate to severe tricuspid valve regurgitation. Pulmonic Valve Trivial pulmonic valve regurgitation. Vessels Less than 50% respiratory change in dimension of the inferior vena cava abnormal. Pericardium The pericardium is normal by two-dimensional imaging. There is no significant pericardial effusion. CONCLUSIONS indication: Acute Hypoxic Respiratory failure Markedly dilated right atrium, Right ventricle is dilated larger than left ventricular diameter with mild right ventricular systolic dysfunction Right ventricular pressure and volume overload is present evidence of paradoxical motion of the interventricular septum. Moderate to severe tricuspid regurgitation with severe pulmonary hypertension PA pressure 68 mmHg systolic estimated Left ventricle is normal in dimension normal wall motion except for paradoxical motion of the septum due to RV pressure overload preserved ejection fraction of 55 to 60% Aortic valve sclerosis no stenosis Mitral valve thickening mild mitral regurgitation Findings are consistent with pulmonary hypertension with right heart strain and right ventricular enlargement acute versus chronic consider pulmonary thromboembolism versus primary pulmonary hypertension. Harriet Redman (Electronically Signed) Final Date: 05 August 2024 16:01
[2024-08-05] MEDS: NICOTINE PATCH 21 MG/24 HR PATCH.TD24 TOP (20:38)
[2024-08-06] VITALS (16 sets, daily range): BP systolic 111–136; BP diastolic 83–100; PULSE 70–94; RESP 12–25; TEMP 36.1–36.7; O2SAT 90–97; BMI 31.3
[2024-08-06] MEDS: ALBUTEROL/IPRATROPIUM (Duoneb) RT SOL 3 ML NEBU INH ×3 (01:29→12:35)
[2024-08-06 05:59] LABS: Basophils # (Auto) 0.1 Thou/mm3 (0.0-0.2); Basophils % (Auto) 1 % (0-2.5); Eosinophils # (Auto) 0.1 Thou/mm3 (0.0-0.5); Eosinophils % (Auto) 2 % (0-10); Hematocrit 42.3 % (41.0-53.0); Hemoglobin 14.4 g/dL (13.5-16.0); Immature Granulocytes % (Auto) 1 % (0-0); Immature Granulocytes Auto 0.03 Thou/mm3 (0.00-0.00); Lymphocytes # (Auto) 1.2 Thou/mm3 (1.0-4.8); Lymphocytes % (Auto) 19 % (10-50); Mean Corpuscular Hemoglobin 32.1 pg (25.0-35.0); Mean Corpuscular Volume 94 fL (80-100); Monocytes # (Auto) 0.9 Thou/mm3 (0.0-0.8); Monocytes % (Auto) 14 % (0-12); Neutrophils # (Auto) 4.2 Thou/mm3 (1.8-7.7); Neutrophils % (Auto) 64 % (37-80); Nucleated Red Blood Cell % 0 /100 WBC (0); Platelet Count 144 Thou/mm3 (140-440); RDW Standard Deviation 51.3 fL (35.1-43.9); Red Blood Count 4.49 Miln/mm3 (4.50-5.90); White Blood Count 6.5 Thou/mm3 (3.8-10.6)
[2024-08-06 06:59] LABS: Alanine Aminotransferase 19 U/L (10-49); Albumin, Serum 3.8 gm/dL (3.5-5.0); Albumin/Globulin Ratio 1.5 (1.2-2.2); Alkaline Phosphatase 322 U/L (46-116); Anion Gap 9 (7-16); Aspartate Amino Transferase 27 U/L (0-34); BUN/Creatinine Ratio 18 Ratio (12-20); Blood Urea Nitrogen 21 mg/dL (9-23); Calcium (Corrected) 9.2 mg/dL (8.5-10.1); Carbon Dioxide 24.3 mMol/L (20.0-31.0); Chloride 108 mMol/L (98-107); Creatinine (Component) 1.2 mg/dL (0.6-1.3); Estimated Creatinine Clearance 78.6 mL/min (>60); Globulin 2.5 gm/dL (2.3-3.5); Glucose 100 mg/dL (74-106); Osmolality,Calculated 284 (275-295); Potassium 3.6 mMol/L (3.4-5.1); Sodium 141 mMol/L (136-145); Total Protein 6.3 gm/dL (5.7-8.2); eGFR > 60 See Note
[2024-08-06] MEDS: ENOXAPARIN SOD INJ 40 MG/0.4 ML SYRINGE SC (08:22)
[2024-08-06] MEDS: carVEDILOL 3.125 MG TABLET 6.25 MG PO ×2 (08:22→17:38)
[2024-08-06] MEDS: BUMETANIDE INJ 0.25 MG/ML VIAL 4 ML 1 MG IVP ×2 (08:23→21:48)
[2024-08-06] MEDS: POTASSIUM CHLORIDE 20 mEq TABCR 40 MEQ PO (08:43)
[2024-08-06 11:28] LABS: Cocci Serology, IgG Negative (Negative)
--- NOTE | 2024-08-06 11:44 | PC.SS ---
Addendum entered by Federica Ponce 08/06/24 14:58: SS follow up note; [facility] delivering 02 at bedside within 2-3 hours. Original Note: SS follow up note; Patient is pending an Angio Gram, if done and read today, patient will discharge home today. SS also was contacted by [facility] MAR[facility] Calderon and informed SS that patient was needing home 02. SS will submit referral through [employer].
--- NOTE | 2024-08-06 12:23 | PC.PT ---
PT eval only. Patient is xI. Patient will required home O2 upon D/C due to desaturation to 83% on room air with transfers. Patient is safe to ambulate in his room and to the bathroom using O2 and no DME or staff assistance. RN made aware.
--- NOTE | 2024-08-06 13:59 | PC.NURSE ---
o2 sat on room air at rest 86.applied @ 4 L o2,o2sat up to 92%.
--- NOTE | 2024-08-06 17:19 | ESPR_ITS ---
<Statement entered by Bharat Tiwari MD - 08/11/24 09:31> I reviewed above note and agree with findings and plans. I have also personally examined the patient with medicine team and went over assessment and plan with medical team including hospitality internship and resident physician. <Statement entered by Kwesi Palmer MD - 08/08/24 15:01> Patient seen and assessed at bedside. Patient getting CTA of chest to rule out PE as he has elevated right heart pressures. Patient feels much better but awaiting further cardiac reccs. Case discussed with team. Kwesi Palmer MD PGY3 Documentation for date of: 08/06/24 Subjective Subjective Interval history: Patient is seen and examined at bedside No acute overnight events. Denies any other complaints Labs showed downtrending bilirubin, 2 Patient underwent CTA today to rule out pulmonary embolism, which came back negative So patient might be having primary pulmonary hypertension secondary to with amphetamine usage Will recommend to follow-up with development technologist Dr. Crawford on outpatient basis for further management Will continue to diuresis for now and planning to discharge tomorrow Exam Vital Signs Temp Pulse Resp BP Pulse Ox O2 Del Method O2 Flow Rate 97.4 F 93 19 135/94 H 96 Nasal Cannula 4 08/06/24 16:00 08/06/24 16:00 08/06/24 16:00 08/06/24 16:00 08/06/24 16:00 08/06/24 16:00 08/06/24 16:00 Narrative Exam General: Awake. On oxygen through nasal cannula HEENT: Normocephalic, atraumatic, mucous membranes moist. Heart: Regular rate and rhythm, no murmurs. Lungs: Clear to auscultation with no wheezing or crackles. Abdomen: Soft, nondistended, nontender, positive bowel sounds. ?No guarding or rebound tenderness. Neurologic: Alert and oriented x3, no gross neurological deficit, and patient able to move all 4 extremities. Extremities: Bilateral 4+ pitting pedal edema extending up to lower abdomen. Noticed scrotal edema. Bilateral erythema is noted in the lower extremities Skin: No rash or ecchymoses. Objective Labs 08/07/24 04:57 08/07/24 04:57 Labs: Laboratory Results - last 24 hr 08/04/24 08/06/24 17:27 05:29 WBC 6.5 RBC 4.49 L Hgb 14.4 Hct 42.3 MCV 94 MCH 32.1 MCHC 34.0 RDW Std Deviation 51.3 H Plt Count 144 Neut % (Auto) 64 Lymph % (Auto) 19 Mobile % (Auto) 14 H Eos % (Auto) 2 Baso % (Auto) 1 Neut # (Auto) 4.2 Lymph # (Auto) 1.2 Mobile # (Auto) 0.9 H Eos # (Auto) 0.1 Baso # (Auto) 0.1 Immature Gran # (Auto) 0.03 H Absolute Nucleated RBC 0.00 Immature Gran % 1 H Nucleated RBC % 0 Sodium 141 Potassium 3.6 Chloride 108 H Carbon Dioxide 24.3 Anion Gap 9 BUN 21 Creatinine 1.2 Estim Creat Clear Calc 78.6 eGFR > 60 BUN/Creatinine Ratio 18 Glucose 100 Calculated Osmolality 284 Calcium 9.0 Corrected Calcium 9.2 Total Bilirubin 2.0 H D AST 27 ALT 19 Alkaline Phosphatase 322 H Total Protein 6.3 Albumin 3.8 Globulin 2.5 Albumin/Globulin Ratio 1.5 Coccidioides IgG Ab Negative ABG Interpretation ABG results: 08/04/24 16:37 ABG pH 7.48 H ABG pCO2 29 L ABG pO2 61 L ABG HCO3 21 ABG O2 Saturation 92 ABG Base Excess -1 Quality Measures Quality Measures none Assessment & Plan Assessment Current Active Medications: Generic Name Dose Route Start Last Admin Trade Name Freq PRN Reason Stop Dose Admin Acetaminophen 650 mg 08/04/24 16:48 Acetaminophen 325 Mg Tablet PO 09/03/24 16:27 Q6H PRN Fever >100.3 Albuterol/Ipratropium 3 ml 08/04/24 19:00 08/06/24 12:35 Albuterol/Ipratropium (Duoneb) Rt Gertrude 3 Ml Nebu INH 09/03/24 18:59 3 ml Q6HRRT LALY Administration Bumetanide 1 mg 08/04/24 21:00 08/06/24 08:23 Bumetanide Inj 0.25 Mg/Ml Vial 4 Ml IVP 09/03/24 20:59 1 mg BID LALY Administration Carvedilol 6.25 mg 08/04/24 17:30 08/06/24 08:22 Carvedilol 3.125 Mg Tablet PO 05/23/25 17:29 6.25 mg BIDWM LALY Administration Docusate Sodium 100 mg 08/04/24 16:28 Docusate Sod 100 Mg Capsule PO 09/03/24 16:27 QDAY PRN CONSTIPATION Protocol Enoxaparin Sodium 40 mg 08/05/24 09:00 08/06/24 08:22 Enoxaparin Sod Inj 40 Mg/0.4 Ml Syringe SC 08/19/24 08:59 40 mg QDAY LALY Administration Nicotine 21 mg 08/06/24 21:00 Nicotine Patch 21 Mg/24 Hr Patch.Td24 TOP 09/04/24 20:24 HS LALY Ondansetron HCl 4 mg 08/04/24 16:28 Ondansetron Inj 2 Mg/Ml Inj 2 Ml IV 09/03/24 16:27 Q6H PRN NAUSEA OR VOMITING Protocol Tramadol HCl 50 mg 08/04/24 16:28 Tramadol Hcl 50 Mg Tablet PO 08/09/24 16:27 Q6HR PRN PAIN SCALE 4-10(Mod-Sev Plan A 54-year-old male with significant past medical history of congestive heart failure, hypertension, chronic smoker, methamphetamine abuse, recently diagnosed with right lung mass presented to the hospital with worsening shortness of breath since 2 weeks and admitted in the hospital for acute hypoxic respiratory failure secondary to heart failure exacerbation, likely systolic failure in the setting of methamphetamine abuse # Acute hypoxic respiratory failure # Secondary to CHF exacerbation # Pulmonary hypertension, to rule out secondary causes # Risk factors-methamphetamine, chronic smoker - Patient had history of chronic smoking since 40 years and is using methamphetamine - Presented to the hospital with chief complaints of shortness of breath which is worsening over the last 2 weeks and lower extremity swelling which was present since many months from now - Patient is using Lasix, despite that patient is having shortness of breath which is worsening for which he went to outpatient clinic in the [facility] - Patient was referred to hospital in view of worsening shortness of breath - Vitals at the time of admission are significant for blood pressure 143/98 mmHg, SpO2 88% with room air - On physical exam, noted bilateral 4+ pitting pedal edema extending up to lower abdomen with scrotal edema. Diffuse erythema noted in bilateral lower extremity with induration suggestive of chronic venous hypertension - Labs are significant for elevated bilirubin 2.6, AST 35, ALP 347, LDH 273, BNP 260 - Urine toxicology is positive for methamphetamine and marijuana - Chest x-ray showed 2.9 cm mass in the right lung which is calcified - Abdominal ultrasound showed minimal ascites fluid - 80mg of lasix is given in the ED - cocci serology ordered and came negative - CT angio of chest came back negative for pulmonary emboli Plan - Started on Bumex 1 Mg IV twice daily - Started on salt restriction to 2 g and fluid restriction to 1500 mL - Will continue his home carvedilol 6.25 Mg twice daily - Oxygen as needed - DuoNebs every 8 hourly - Will recommend patient to follow-up in outpatient basis with development technologist, Dr. Crawford in view of pulmonary hypertension # History of hypertension - Blood pressure at the time of admission is 143/98 mmHg - Patient is using lisinopril 10 Mg at home Plan - Patient was started on Bumex 1 Mg IV twice daily - Patient was started on carvedilol 6.25 Mg twice daily - Placed on salt restriction and fluid restriction - Will continue to monitor blood pressures and titrate medications as needed # Newly diagnosed diabetes mellitus HbA1c on 08/05/2024 is 6.3 Plan - Will recommend patient to follow-up in outpatient basis with his primary care provider for further management #Hyperbilirubinemia likely from liver disease - Total bilirubin at the time of admission is 2.6 - AST is mildly elevated to 35, ALT is within normal limits - ALP is 347, LDH is 273 - Gallbladder ultrasound is ordered, did not show any stones Plan - Will continue to monitor CMP for now #Right lung mass #Right Renal mass - Patient reported that he was diagnosed with lung mass 2 weeks before the hospital admission - Chest x-ray showed 2.9 cm in the right lung and right renal mass on CT abdomen Plan - Once the patient gets hemodynamically stable, will plan to do biopsy on outpatient basis # Marijuana and methamphetamine abuse - Patient tested positive for methamphetamine and marijuana Plan - Referral to social problems specialist done Hospital Maintenance: Dispo: Tele DVT ppx: Lovenox GI ppx: not needed Diet: salt restriction and fluid restriction to 1500ml IV lines: Peripheral Code status: Full Patient plan of care was discussed with the attending physician, Dr. Tiwari and senior resident Dr. Dr. Spencer Altman, PGY1
--- NOTE | 2024-08-06 21:14 | EKG_ITS ---
[facility] Test Date: 2024-08-06 Pat Name: MARIBELL PORTILLO [facility] Pastor: FTUIB : 1970 Requested By: Cecil Mcdermott Order Number: [id number] Reading MD: Cecil Mcdermott Measurements Intervals [place] Rate: 91 P: [place]: QRS: 105 QRSD: 121 T: -18 QT: 387 QTc: 478 Interpretive Statements SINUS RHYTHM WITH 2ND DEGREE AV BLOCK, MOBITZ TYPE II MARKED RIGHT AXIS DEVIATION ANTEROSEPTAL MYOCARDIAL INFARCTION , OF INDETERMINATE AGE Compared to ECG 08/04/2024 13:17:43 Myocardial infarct finding now present Ectopic atrial rhythm no longer present Incomplete right bundle-branch block no longer present ST (T wave) deviation no longer present /store/S0/[id number].pdf
--- NOTE | 2024-08-06 21:14 | PC.NURSE ---
PT WITH NEW ONSET AFIB, HR CONTROLLED IN THE 70'S. NO C/O CP. BP AT 123/93. DR. JEFFRIES MADE AWARE. NEW ORDERS FOR EKG PLACED.
[2024-08-06] MEDS: DOCUSATE SOD 100 MG CAPSULE PO (21:49)
[2024-08-06] MEDS: NICOTINE PATCH 21 MG/24 HR PATCH.TD24 TOP (21:49)
[2024-08-06] MEDS: MELATONIN 3 MG TABLET PO (22:39)
--- NOTE | 2024-08-06 23:39 | PC.NURSE ---
DR. CACERES MADE AWARE OF EKG SHOWING SR W/2ND DEGREE TYPE II. STATES SHE WILL REVIEW EKG
[2024-08-07] VITALS (11 sets, daily range): BP systolic 116–132; BP diastolic 81–93; PULSE 60–106; RESP 15–95; TEMP 36.1–36.4; O2SAT 87–96
[2024-08-07] MEDS: ALBUTEROL/IPRATROPIUM (Duoneb) RT SOL 3 ML NEBU INH ×3 (00:26→13:38)
[2024-08-07 06:21] LABS: Basophils # (Auto) 0.1 Thou/mm3 (0.0-0.2); Basophils % (Auto) 1 % (0-2.5); Eosinophils # (Auto) 0.1 Thou/mm3 (0.0-0.5); Eosinophils % (Auto) 2 % (0-10); Hematocrit 42.8 % (41.0-53.0); Hemoglobin 14.5 g/dL (13.5-16.0); Immature Granulocytes % (Auto) 1 % (0-0); Immature Granulocytes Auto 0.03 Thou/mm3 (0.00-0.00); Lymphocytes # (Auto) 1.2 Thou/mm3 (1.0-4.8); Lymphocytes % (Auto) 20 % (10-50); Mean Corpuscular HGB Conc 33.9 g/dl (31.0-37.0); Mean Corpuscular Volume 95 fL (80-100); Monocytes # (Auto) 0.8 Thou/mm3 (0.0-0.8); Monocytes % (Auto) 12 % (0-12); Neutrophils # (Auto) 3.9 Thou/mm3 (1.8-7.7); Neutrophils % (Auto) 65 % (37-80); Nucleated Red Blood Cell % 0 /100 WBC (0); Platelet Count 144 Thou/mm3 (140-440); RDW Standard Deviation 51.6 fL (35.1-43.9); Red Blood Count 4.53 Miln/mm3 (4.50-5.90)
[2024-08-07 06:32] LABS: Alanine Aminotransferase 20 U/L (10-49); Albumin/Globulin Ratio 1.6 (1.2-2.2); Alkaline Phosphatase 328 U/L (46-116); Anion Gap 10 (7-16); Aspartate Amino Transferase 27 U/L (0-34); BUN/Creatinine Ratio 17 Ratio (12-20); Bilirubin,Total 1.9 mg/dL (0.3-1.2); Blood Urea Nitrogen 19 mg/dL (9-23); Calcium 9.3 mg/dL (8.3-10.6); Calcium (Corrected) 9.3 mg/dL (8.5-10.1); Carbon Dioxide 23.7 mMol/L (20.0-31.0); Chloride 102 mMol/L (98-107); Creatinine (Component) 1.1 mg/dL (0.6-1.3); Estimated Creatinine Clearance 85.8 mL/min (>60); Globulin 2.5 gm/dL (2.3-3.5); Glucose 99 mg/dL (74-106); Osmolality,Calculated 274 (275-295); Potassium 3.7 mMol/L (3.4-5.1); Sodium 136 mMol/L (136-145); Total Protein 6.5 gm/dL (5.7-8.2); eGFR > 60 See Note
[2024-08-07] MEDS: ENOXAPARIN SOD INJ 40 MG/0.4 ML SYRINGE SC (08:11)
[2024-08-07] MEDS: carVEDILOL 3.125 MG TABLET 6.25 MG PO (08:11)
[2024-08-07] MEDS: BUMETANIDE INJ 0.25 MG/ML VIAL 4 ML 1 MG IVP (08:12)
--- NOTE | 2024-08-07 16:52 | ESDS_ITS ---
<Statement entered by Bharat Tiwari MD - 08/11/24 12:11> I reviewed above note and agree with findings and plans. I have also personally examined the patient with medicine team and went over assessment and plan with medical team including international trade specialist and resident physician. Planned Discharge Date 08/07/24 DS: Providers Provider Date of admission: 08/04/24 16:29 Primary care physician: Get Jules PA-C Admitting Provider: Bharat Tiwari MD Attending Provider on Admission: Bharat Tiwari MD Consults: 08/05/24 11:12 Referral Physical Therapy Routine Comment: Physician Instructions: Attending Provider on DC: Adrian Altman MD Discharging Provider: Adrian Altman MD DS: Diagnosis Problem List Completed Was Problem List Reviewed/Reconciled?: Yes Hospital Course Hospital Course Hospital course: A 54-year-old male with significant past medical history of congestive heart failure, hypertension, chronic smoker, methamphetamine abuse, recently diagnosed with right lung mass presented to the hospital with worsening shortness of breath since 2 weeks and admitted in the hospital for acute hypoxic respiratory failure secondary to heart failure secondary to pulmonary hypertension Hospital course: Labs are significant for total bilirubin 2.6, AST 35, ALT 25, ALP 347, LDH 273, BNP 260. Urine toxicology tested positive for methamphetamine, marijuana. Chest x-ray showed 2.9 cm mass in the right lung which is calcified. Abdominal ultrasound showed minimal ascitic fluid. Tested negative for cocci pneumonia. Patient was treated with IV diuretics during the hospital admission. Echo done during the hospital admission showed markedly dilated right atrium, right ventricle is dilated larger than left ventricular diameter with mild right ventricular systolic dysfunction. Moderate to severe tricuspid regurgitation with severe pulmonary hypertension, PA pressure of 68 mmHg. LVEF is 55 to 60%. Window Assembler Dr. Crawford recommended to do CT angiogram to rule out pulmonary thromboembolism. CT angio did not show any evidence of pulmonary embolism. Recommended patient to follow-up in outpatient basis with dean Dr. Crawford for follow-up on pulmonary hypertension. Also recommended patient to follow-up on outpatient basis with his PCP for the follow-up on mass in the lung and kidney, probably will need biopsy Patient is discharged to home with following medications and recommendations -Follow-up with PCP within 1 week of discharge. If you do not have appointment, please follow-up with the [facility] with Dr. Altman. Call [phone] to make an appointment. -Follow up with Dr. Crawford within 1- 2 weeks of discharge. -Recommended to continue oxygen as needed according to pulse oximeter and symptoms, maintain saturation around 90 -Recommended to stop Mehamphetamine, Marijuana, smoking -Start Bumex 1mg orally everyday -Recommended salt restriction to 2gm and fluid restriction to 2000ml, including your coffee, tea, juices -Recommended to continue Carvedilol 6.25mg twice daily and metformin 500mg twice daily -Recommended to take nicotine gums as needded -Return to ED if symptoms persist or return # Acute hypoxic respiratory failure # Secondary to CHF exacerbation # Pulmonary hypertension, to rule out secondary causes # Risk factors-methamphetamine, chronic smoker # History of hypertension # Diabetes mellitus #Hyperbilirubinemia #Right lung mass #Right Renal mass # Marijuana and methamphetamine abuse Patient plan of care was discussed with the attending physician, Dr. Tiwari and senior resident Dr. Dr. Mar Altman, PGY1 Time Spent with Patient Time attestation: Total time spent providing and/or coordinating discharge services: Time spent: Greater than 30 minutes Exam Vital Signs Temp Pulse Resp BP Pulse Ox O2 Del Method O2 Flow Rate 97 F 79 20 116/81 95 Nasal Cannula 3 08/07/24 14:50 08/07/24 14:50 08/07/24 14:50 08/07/24 14:50 08/07/24 14:50 08/07/24 14:50 08/07/24 14:50 Narrative Exam General: Awake. On oxygen through nasal cannula HEENT: Normocephalic, atraumatic, mucous membranes moist. Heart: Regular rate and rhythm, no murmurs. Lungs: Clear to auscultation with no wheezing or crackles. Abdomen: Soft, nondistended, nontender, positive bowel sounds. ?No guarding or rebound tenderness. Neurologic: Alert and oriented x3, no gross neurological deficit, and patient able to move all 4 extremities. Extremities: Bilateral 4+ pitting pedal edema. Bilateral erythema is noted in the lower extremities, Chronic peripheral vascular changes noted Skin: No rash or ecchymoses. Discharge Plan Plan Patient Disposition: HOME (Self Care) Patient condition on transfer: Stable Care Plan Goals: -Follow-up with PCP within 1 week of discharge. If you do not have appointment, please follow-up with the [facility] with Dr. Altman. Call [phone] to make an appointment. -Follow up with Dr. Crawford within 1- 2 weeks of discharge. -Recommended to continue oxygen as needed according to pulse oximeter and symptoms, maintain saturation around 90 -Recommended to stop Mehamphetamine, Marijuana, smoking -Start Bumex 1mg orally everyday -Recommended salt restriction to 2gm and fluid restriction to 2000ml, including your coffee, tea, juices -Recommended to continue Carvedilol 6.25mg twice daily and metformin 500mg twice daily -Recommended to take nicotine gums as needded -Return to ED if symptoms persist or return Prescriptions/Referrals Prescriptions/Med Rec: New bumetanide 1 mg tablet 1 mg PO QDAY Qty: 30 2RF Continued metformin 500 mg tablet 500 mg PO BID Patient Comments: TAKE 1 TABLET BY MOUTH TWICE A DAY WITH A MEAL FOR 30 DAYS carvedilol 6.25 mg tablet 6.25 mg PO BID Patient Comments: TAKE 1 TABLET BY MOUTH TWICE A DAY WITH FOOD FOR 30 DAYS Held lisinopril 40 mg tablet 40 mg PO QDAY Hold Instructions: until seen by cardio Patient Comments: TAKE 1 TABLET BY MOUTH EVERY DAY Discontinued furosemide 20 mg tablet 20 mg PO QDAY Referrals: Get Jules PA-C [Primary Care Provider] - Patient/Caregiver Discharge Instructions Education Materials: Heart Failure Meds, Low-Salt Choices, Heart Failure Signs of Flare-Up, Heart Failure: Tracking Your Weight, Heart Failure: Being Active, Heart Failure Making Changes to ..., Heart Failure Dc Print Language: [place] Stand Alone Forms: Lian Award Info., Patient Portal Info Letter Discharge Order Discharge Orders: Discharge (Routine); Ordered 08/07/24 Ordered By: Adrian Altman Quality Discharge Quality Measures VTE prophylaxis
== END 2024-08-07 14:08 | disposition home or self-care (01) | DRG 194 ==
LOC: SERX 16:18 → SERHOLD 16:52 → S2NX 22:09
PROVIDERS: Nurse Practitioner Primary Care; Admitting Provider Internal Medicine; Emergency Provider Emergency Medicine; PCP Family Medicine; Visit Provider Internal Medicine
DX: I11.0 Hypertensive heart disease with heart failure (principal); J96.01 Acute respiratory failure with hypoxia; I50.23 Acute on chronic systolic (congestive) heart failure; R91.8 Other nonspecific abnormal finding of lung field; N50.89 Other specified disorders of the male genital organs; R17 Unspecified jaundice; E11.9 Type 2 diabetes mellitus without complications; I07.1 Rheumatic tricuspid insufficiency; I27.20 Pulmonary hypertension, unspecified; F12.10 Cannabis abuse, uncomplicated; N28.89 Other specified disorders of kidney and ureter; F17.210 Nicotine dependence, cigarettes, uncomplicated; F15.10 Other stimulant abuse, uncomplicated; Z79.84 Long term (current) use of oral hypoglycemic drugs; Z79.899 Other long term (current) drug therapy
CPT/HCPCS: 36415; 36600; 71046; 71275; 76705; 80053; 80061; 80307; 81001; 82803; 83036; 83615; 83690; 83735; 83880; 84100; 84443; 84484; 85025; 85610; 85730; 86331; 86635; 87400; 87811; 93005; 93306; 93970; 94640; 96365; 96375; 97162; 99285; A4649; A9270; J1650; J1938; J3480; J3490; Q9967